=== PATIENT | male | born 1980 | race Caucasian/White ===

== ENCOUNTER 2020-03-29 18:05 | Emergency (ER) | payer SELFPAY ==
[~2020-03-29] VITALS: Ht 182.8 cm; Wt 63.5 kg
[~2020-03-29 18:05] MED LIST: BENADRYL50 MG PO; LIDEX0.05% T; PREDNICOT20 MG PO; VICO75300 PO; ZITHROMAX Z PA250 MG PO
[2020-03-29] MEDS ORDERED: ERYTHROMYCIN OPH1 GM OPH (18:40)
== END 2020-03-29 18:54 | disposition home or self-care (01) ==
LOC: ED 18:05
DX: S05.02XA Injury of conjunctiva and corneal abrasion without foreign body, left eye, initial encounter (principal); Z87.891 Personal history of nicotine dependence; Z88.0 Allergy status to penicillin; Z79.899 Other long term (current) drug therapy; W22.8XXA Striking against or struck by other objects, initial encounter; Y93.89 Activity, other specified; Y92.89 Other specified places as the place of occurrence of the external cause; Y99.8 Other external cause status